=== PATIENT | female | born 1950 | race Caucasian/White ===

== ENCOUNTER 2019-11-17 10:49 | Outpatient (CLI) | payer MEDICARE, MEDICAID, SELFPAY | END 2019-11-17 10:50 | disposition home or self-care (01) | PROVIDERS: PCP Internal Medicine; Visit Provider Specialist | DX: D18.01 Hemangioma of skin and subcutaneous tissue (principal); C44.319 Basal cell carcinoma of skin of other parts of face | CPT/HCPCS: 88305 ==

== ENCOUNTER 2020-08-16 10:49 | Outpatient (CLI) | payer MEDICARE, MEDICAID, SELFPAY | END 2020-08-16 10:50 | disposition home or self-care (01) | LOC: CHSLAB 10:54 | PROVIDERS: PCP Internal Medicine; Visit Provider Specialist | DX: C44.311 Basal cell carcinoma of skin of nose (principal) | CPT/HCPCS: 88305 ==

== ENCOUNTER 2021-01-31 09:15 | Outpatient (CLI) | payer MEDICARE, MEDICAID, SELFPAY | END 2021-01-31 09:16 | disposition home or self-care (01) | PROVIDERS: PCP Specialist; Visit Provider Specialist | DX: C44.41 Basal cell carcinoma of skin of scalp and neck (principal) | CPT/HCPCS: 88305 ==